=== PATIENT | male | born 1980 | race Two or more races ===

== ENCOUNTER 2018-02-14 13:16 | Emergency (ER) | payer OTHER ==
[~2018-02-14] VITALS: Ht 182.9 cm; Wt 83.9 kg
[2018-02-14 13:30] VITALS: BP 114/73
[2018-02-14 14:20] LABS: Basophils # (auto) 0 uL; Basophils % (auto) 0.4 % (0.0-2.0); Eosinophils # (auto) 0.3 uL; Eosinophils % (auto) 3.4 % (0.0-7.0); Hematocrit 42.1 % (41.0-53.0); Hemoglobin 14.9 g/dL (13.5-17.5); Lymphocytes # (auto) 1.9 uL; Lymphocytes % (auto) 21.7 % (10.0-50.0); Mean Corpuscular Hemoglobin 33.6 pg (28.0-32.0); Mean Corpuscular Hgb Conc. 35.4 g/dL (32.0-36.0); Monocytes # (auto) 0.5 uL; Monocytes % (auto) 5.5 % (0.0-12.0); Nucleated Red Blood Cells % 0.1 %; Platelet Count (auto) 283 10^3/uL (140-450); Red Blood Cells 4.43 10^6/uL (4.5-5.90); Red Cell Distribution Width 13.2 % (11.8-14.3); White Blood Cell 8.7 10^3/uL (4.4-10.8)
[2018-02-14 14:45] LABS: Urine Bacteria NONE SEEN /hpf (None Seen); Urine Blood Negative /uL (Negative); Urine Mucus FEW (None Seen); Urine Specific Gravity 1.016 (1.001-1.035); Urine WBC 174 /hpf (0 - 3); Urine WBC Clumps PRESENT /hpf (None Seen)
[2018-02-14 14:54] LABS: Albumin 3.5 g/dL (3.4-5.0); BUN/Creatinine Ratio 8.7; Bilirubin, Total 0.3 mg/dL (0.2-1.0); Potassium 3.7 mmol/L (3.5-5.1); Total Protein 7.4 g/dL (6.4-8.2)
[2018-02-14 16:03] LABS: Alcohol, Urine < 3.0 mg/dL (0-5); Amphetamine Screen, Urine NEGATIVE (NEGATIVE); Barbiturate Scree,Urine NEGATIVE (NEGATIVE); Benzodiazephine Screen, Urine NEGATIVE (NEGATIVE); Cannabinoid Screen, Urine POSITIVE (NEGATIVE); Cocaine Screen, Urine NEGATIVE (NEGATIVE); Opiate Scree,Urine NEGATIVE (NEGATIVE); Phencyclidine Screen, Urine NEGATIVE (NEGATIVE)
[2018-02-14] MEDS ORDERED: cefTRIAXone SOD 1,000 MG VL ONE (22:26)
[2018-02-14] MEDS ORDERED: MILK OF MAGNESIA 30ML SUSP ONE (22:26)
[2018-02-14] MEDS ORDERED: AZITHROMYCIN 250 MG TAB PO ONE ×2 (22:26→22:30)
[2018-02-14] MEDS ORDERED: MILK OF MAGNESIA 30ML SUSP PO ONE (22:30)
[2018-02-14] MEDS ORDERED: cefTRIAXone W LIDOCAINE 1 GM IM IM ONE (22:30)
== END 2018-02-14 22:46 | disposition home or self-care (01) ==
LOC: ER 13:16
DX: N39.0 Urinary tract infection, site not specified (principal); Z20.9 Contact with and (suspected) exposure to unspecified communicable disease
CPT/HCPCS: 36415; 74018; 80053; 80307; 81001; 85025; 87491; 87591; 96372; 99285; J0696

== ENCOUNTER 2018-07-30 16:52 | Emergency (ER) | payer MEDICAID, OTHER ==
[~2018-07-30] VITALS: Ht 185.4 cm; Wt 79.9 kg
[2018-07-30 16:57] VITALS: BP 129/76
[2018-07-30] MEDS ORDERED: ALPRAZolam 0.5 MG TAB PO ONE (22:00)
[2018-07-30] MEDS ORDERED: FLUoxetine HCL 20 MG CAP PO ONE (22:30)
== END 2018-07-30 22:53 | disposition home or self-care (01) ==
LOC: ER 17:02
DX: F41.9 Anxiety disorder, unspecified (principal); F32.9 Major depressive disorder, single episode, unspecified; F12.10 Cannabis abuse, uncomplicated; Z76.0 Encounter for issue of repeat prescription
CPT/HCPCS: 93005